=== PATIENT | male | born 1995 | race African-American/Black ===

== ENCOUNTER 2023-03-19 14:28 | Outpatient (REF) | payer OTHER, SELFPAY ==
[2023-03-19 15:36] LABS: COVID-19 Test Positive (Negative); IDNOW Serial# 08D9AD1C
== END 2023-03-19 14:29 | disposition home or self-care (01) ==
LOC: HO.LAB 14:28
PROVIDERS: PCP Internal Medicine; Visit Provider Internal Medicine
DX: Z20.822 Contact with and (suspected) exposure to COVID-19 (principal)
CPT/HCPCS: 87635; C9803